=== PATIENT | male | born 1940 | race Two or more races ===

== ENCOUNTER 2022-10-05 06:36 | Emergency (ER) | payer OTHER ==
[~2022-10-05] VITALS: Ht 170.2 cm; Wt 103.9 kg
[~2022-10-05 06:36] MED LIST: LEVOXYL150 MCG PO
[2022-10-05] MEDS ORDERED: VASOTEC20 MG PO (06:49)
[2022-10-05] MEDS ORDERED: DILTIAZEM HCL30 MG PO (06:49)
[2022-10-05] MEDS ORDERED: SIMVASTATIN40 MG PO (06:49)
== END 2022-10-05 09:26 | disposition home or self-care (01) ==
LOC: ER 06:36
DX: I10 Essential (primary) hypertension (principal)

== ENCOUNTER 2022-10-10 07:45 | Emergency (ER) | payer OTHER ==
[~2022-10-10] VITALS: Ht 170.2 cm; Wt 103.9 kg
[~2022-10-10 07:45] MED LIST changes: +DILTIAZEM HCL30 MG PO; +SIMVASTATIN40 MG PO; +VASOTEC20 MG PO
== END 2022-10-10 09:09 | disposition home or self-care (01) ==
LOC: ER 07:45
DX: I10 Essential (primary) hypertension (principal); F41.9 Anxiety disorder, unspecified; E03.9 Hypothyroidism, unspecified